=== PATIENT | male | born 1970 | race Caucasian/White ===

== ENCOUNTER 2017-09-19 01:11 | Inpatient (IN) | payer OTHER ==
[~2017-09-19] VITALS: Ht 180.3 cm; Wt 113.1 kg
[2017-09-19] MEDS ORDERED: CLARITHROMYCIN500 M1 PO (12:34)
--- NOTE | 2017-09-19 13:41 | Admission Core Measures ---
Acute Coronary Syndrome (CM) ACS Core Measures Acute Coronary Syndrome Diagnosis No Congestive Heart Failure (NEW) CHF Core Measures Congestive Heart Failure Diagnosis No Cerebrovascular Accident CVA Core Measures CVA/TIA Diagnosis No Venous Thromboembolism VTE Core Chandana (View Protocol) VTE Risk Factors Surgery No Mechanical VTE Prophylaxis d/t N/A MechProphylax Ordered No VTE Pharm Prophylaxis d/t NA PharmProphylax ordered Problem List As ranked by this Provider includes Assessment & Plan 1. Primary localized osteoarthritis of right hip HOME MEDS Home Med List Clarithromycin 500 MG TABLET 2 TAB PO DAILY sinus infection (Reported)
--- NOTE | 2017-09-19 13:45 | Patient Discharge Instructions ---
Discharge Instructions General Discharge Information You were seen/treated for: Primary osteoarthritis, right hip You had these procedures: Right total hip replacement on 09/19/17 Watch for these problems: Increasing pain despite the use of pain medication Increasing redness, warmth or swelling Drainage of any type from incision Inability to bear weight on operative leg Persistent nausea and vomiting Fever greater than 101.5 degrees No bath, but you may shower: Yes Other wound care: Please keep wound clean and dry. No ointments or lotions of any type on or near incision. Your dressing will be changed by your nurse on the second day after your surgery. Daily dry dressing changes are recommended each day thereafter. Do not soak your wound- no tub baths/swimming. You may shower 48hr after surgery. Special Instructions: Aspirin: You are taking this medication to help prevent blood clot formation. Please take with food to protect your stomach lining. Please take as directed. Constipation: Pain medication can cause constipation. It is recommended that you take Colace and Miralax each day. Discontinue this medication if you develop loose stool or diarrhea. If you wish to continue this medication, it is available over the counter. If you are unable to move your bowels or unable to pass gas and are developing bloating, nausea, or vomiting as a result, please contact your doctor. Diet Continue normal diet: Yes Activity Full Activity/No Limits: No Activity Self Limited: Yes Activity Limited to: Weight bear as tolerated Other activity limits: Use rolling walker as needed Acute Coronary Syndrome Inclusion Criteria At DC or during hospital stay patient has or had the following: ACS DIAGNOSIS No Discharge Core Measures Meds if any: Prescribed or Continued at Discharge Meds if any: NOT Prescribed or Continued at Discharge Congestive Heart Failure Inclusion Criteria At DC or during hospital stay patient has or had the following: CHF DIAGNOSIS No Discharge Core Measures Meds if any: Prescribed or Continued at Discharge Meds if any: NOT Prescribed or Continued at Discharge Cerebrovascular accident Inclusion Criteria At DC or during hospital stay patient has or had the following: CVA/TIA Diagnosis No Discharge Core Measures Meds if any: Prescribed or Continued at Discharge Meds if any: NOT Prescribed or Continued at Discharge Venous thromboembolism Inclusion Criteria VTE Diagnosis No VTE Type NONE VTE Confirmed by (Test) NONE Discharge Core Measures - Per Current guidelines, there needs to be overlap - treatment for the first 5 days of Warfarin therapy. - If discharged on Warfarin prior to 5 days of - overlap therapy, the patient will need to be - assessed for post discharge needs including - *Post discharge parental anticoagulation - *Warfarin and/or parental anticoagulation education - *Follow up date to check INR post discharge At least 5 days overlap therapy as Inpatient No Meds if any: Prescribed or Continued at Discharge Note: Overlap Therapy is Warfarin and Anticoagulant Meds if any: NOT Prescribed or Continued at Discharge
--- NOTE | 2017-09-19 13:46 | Surg Short-stay <48hrs Dis Sum ---
Visit Information Visit Dates Admission Date: 09/19/17 Discharge Date: 09/20/17 Surgical Short Stay DC Summary Admission Diagnosis: Primary osteoarthritis, right hip Final Diagnosis: LENNY s/p right total hip replacement Procedure(s): R THR Summary/Significant Findings: Patient was admitted to the hospital for an elective right total hip replacement. Procedure was tolerated well and patient was transferred to a general surgical floor. Diet was advanced and tolerated. Physical therapy performed evaluation and treatment. At time of hospital discharge, vital signs were stable, neurovascular status was intact, and pain was controlled with the use of oral pain medications. Condition at Discharge: Stable Discharge Disposition: home health services Discharge instructions provided to patient/family: Yes Post discharge follow-up plan: [address] Barbosa Copies to: Jazmin PRIDE,Hayden Dorsey
[2017-09-19] MEDS ORDERED: COLACE100 M1 PO (13:57)
[2017-09-19] MEDS ORDERED: DILAUDID2 M1 PO (13:57)
[2017-09-19] MEDS ORDERED: ASPIRIN EC81 M1 PO (13:57)
[2017-09-19] MEDS ORDERED: INDOMETHACIN25 M1 PO (13:57)
[2017-09-19] MEDS ORDERED: OMEPRAZOLE20 M2 PO (13:57)
[2017-09-19] MEDS ORDERED: MIRALAX17 G1 PO (13:57)
--- NOTE | 2017-09-19 16:17 | Operative Report ---
Operative/Inv Procedure Report Surgery Date: 09/19/17 Name of Procedure: Right total hip replacement Pre-Operative Diagnosis: Primary right hip DJD Post-Operative Diagnosis: Same Estimated Blood Loss: 300 Surgeon/Waste Machine Offbearer: Chelsey PRIDE,Alex Arnold Anesthesia: block Operative/Procedure Note Note: Description of Procedure: The patient was taken to the operating room and positively identified. After induction of spinal anesthesia and administration of appropriate pre-operative antibiotics, the patient was positioned supine on the operating room table and all bony prominences were well padded. After performing a surgical timeout, the right lower extremity was prepped and draped in the usual sterile fashion. A direct anterior approach was made to the right hip. The incision was carried sharply through superficial soft tissues to the level of the fascia. Meticulous hemostasis was maintained with Bovie electocautery. The fascia over the tensor fascia arabella muscle was opened sharply and the interval between the TFL and the sartorius was entered bluntly taking care to stay lateral to the lateral femoral cutaneous nerve. Retractors were placed around the femoral neck and the pericapsular fat was identified. The ascending branches of the lateral femoral circumflex vessels were identified and carefully coagulated. The pericapsular fat and anterior capsule were then resected. A napkin ring osteotomy was performed and the femoral head was removed without difficulty. Attention was then turned to the acetabulum. After appropriate placement of retractors, the acetabulum was exposed. Soft tissue was cleaned from the acetabular margin and notch. Overhanging osteophytes were removed and the teardrop was exposed. The acetabulum was then sequentially reamed to accept a 58 mm Don Tritanium hemispherical solid shell. This was impacted into place in the appropriate position and fitted with a 36 mm Trident X3 zero degree polyethylene insert. Attention was then turned to the femur. After performing the appropriate ligament releases, the proximal femur was exposed. It was then sequentially broached to accept a size 5 Don Accolade 2 stem. This was trialed for leg length and stability. The trial component was removed and the final component was impacted into place. The trunnion was carefully cleaned and fit with a 36 mm, +0 Biolox delta ceramic femoral head. The hip was reduced and put through a full range of motion and found to be stable. The articular space was then irrigated with sterile saline. The periarticular soft tissues were infilitrated with Marcaine. The fascial layer was closed with interrupted #1 vicryl suture and the skin was re-approximated with interrupted 2 -0 vicryl. The skin was closed with a running 3-0 V-Lock suture. Steri-strips and a sterile dressing were applied. The patient was awakened and taken to the recovery room in satisfactory condition.
--- NOTE | 2017-09-19 17:47 | RADIOLOGY REPORT ---
EXAMINATION: XR HIP, RIGHT CLINICAL INFORMATION: Right hip replacement. COMPARISON: None TECHNIQUE: Two views of the right hip. FINDINGS: A right hip prosthesis is in place. Alignment is adequate. There is expected subcutaneous gas present. IMPRESSION: Expected appearance of recent right hip replacement.
--- NOTE | 2017-09-19 18:25 | PN- Orthopedic ---
Subjective Subjective: Patient complains of moderate pain,was confused initially in PACU postop now alert and oriented is present, all questions answered Objective Vital Signs and I&Os VSS afebile Physical Exam: right hip - dressings CDI, without drainage thigh without edema sensory-motor intact, distal pulses intact chest-CTA heart - RRR abd - soft nontender Assessment/Plan Assessment/Plan 46 y/o male S/P right SHARON cont IVF until taking POs FWB with PT in am ASA and indocin Core Measures Venous Thromboembolism VTE Risk Factors Surgery No Mechanical VTE Prophylaxis d/t N/A MechProphylax Ordered No VTE Pharm Prophylaxis d/t NA PharmProphylax ordered
[2017-09-19 19:21] VITALS: BP 130/80
[2017-09-19 21:00] VITALS: BP 130/68
[2017-09-20] VITALS: BP 124/70
[2017-09-20 02:25] VITALS: BP 121/69
[2017-09-20 06:30] VITALS: BP 109/57
[2017-09-20 07:53] LABS: ABSOLUTE BASOPHIL COUNT 0 /CUMM (0.0-0.2); ABSOLUTE EOSINOPHIL COUNT 0 /CUMM (0.0-0.7); ABSOLUTE GRANULOCYTE CT 15.7 /CUMM (1.4-6.5); ABSOLUTE LYMPH COUNT 1.2 /CUMM (1.2-3.4); ABSOLUTE MONOCYTE COUNT 1.4 /CUMM (0.10-0.60); BASOPHIL % 0 % (0.0-2.0); EOSINOPHIL % 0 % (0-5); HEMATOCRIT 39.6 % (42-52); MEAN CORPUSCULAR HGB CONC 32.7 G/DL (33.0-37.0); MEAN CORPUSCULAR VOLUME 85.7 FL (80.0-94.0); MEAN PLATELET VOLUME 9.4 FL (7.4-10.4); PLATELET COUNT 208 /CUMM (130-400); RBC DISTRIBUTION WIDTH 13.1 % (11.5-14.5); RED BLOOD CELL CT 4.61 /CUMM (4.70-6.10)
[2017-09-20 07:57] LABS: GRANULOCYTE % 85.8 % (42.2-75.2)
[2017-09-20 08:58] LABS: WHITE BLOOD CELL COUNT 18.3 /CUMM (4.8-10.8)
--- NOTE | 2017-09-20 09:20 | PN- Orthopedic ---
Subjective Subjective: No complaints. Reports pain controlled with dilaudid. Cleared for home by PT this morning. No dizziness. No shortness of breath. No chest pains. Voiding well. Anticipates discharge to home today. Objective Vital Signs and I&Os Vital Signs Date Time Temp Pulse Resp B/P B/P Pulse O2 O2 Flow FiO2 Mean Ox Delivery Rate 09/20 0630 98.6 76 18 109/57 96 09/20 0225 98.0 71 18 121/69 95 / 0000 97.8 67 18 124/70 96 09/19 2100 98.2 68 17 130/68 95 Room Air 09/19 1921 98.4 71 18 130/80 94 Room Air Intake & Output 09/20 1600 09/20 0800 09/20 0000 09/19 1600 09/19 0800 09/19 0000 Intake Total 890 Output Total 450 Balance 890 -450 Intake, IV 650 Intake, Oral 240 Output, Urine 450 Patient 249 lb Weight Weight Bed scale Measurement Method Physical Exam: General - alert & oriented x 3. comfortable. no acute distress. Lungs - clear bilaterally. no w/r/r. Cardiac - s1s2. reg. Abdomen - soft. nontender. Extremities - warm bilaterally. no c/c/e. right hip dressing c/d/i. no hematoma. calves soft and nontender b/l. nvi. Current Medications: Current Medications Sig/Torres Start time Last Medication Dose Route Stop Time Status Admin Acetaminophen 0 .STK-MED ONE 09/19 1315 DC PO Aspirin Buffered 81 MG BID 09/19 2099 09/20 PO 0829 Cefazolin Sodium 2 GM Q8H 09/19 2100 DC 09/20 N/A 1 UNIT IV 09/20 0529 0533 Cefazolin Sodium 2,000 MG ONCE 09/19 0000 DC IV 09/19 2359 Dextrose/Sodium 1,000 ML .[id number] 09/19 193 AC 09/20 Chloride IV 0830 Docusate Sodium 100 MG BID 09/19 2100 AC 09/20 PO 0829 Haloperidol 5 MG .STK-MED ONE 09/19 1631 DC IM 09/19 1632 Hydromorphone HCl 2 MG Q4P PRN 09/19 1930 AC 09/20 PO 0047 Hydromorphone HCl 4 MG Q4P PRN 09/19 1930 AC 09/20 PO 0538 Hydromorphone HCl 2 MG .STK-MED ONE 09/19 1845 DC IM 09/19 1846 Hydromorphone HCl 2 MG .STK-MED ONE 09/19 1757 DC IM 09/19 1758 Hydromorphone HCl 2 MG .STK-MED ONE 09/19 1728 DC IM 09/19 1729 Hydromorphone HCl 2 MG .STK-MED ONE 09/19 1713 DC IM 09/19 1714 Hydromorphone HCl 2 MG .STK-MED ONE 09/19 1653 DC IM 09/19 1654 Hydromorphone HCl 2 MG .STK-MED ONE 09/19 1646 DC IM 09/19 1647 Indomethacin Sodium 25 MG TID 09/19 1400 AC 09/20 PO 0829 Ketorolac 30 MG .STK-MED ONE 09/19 1816 DC Tromethamine IM 09/19 1817 Midazolam HCl 4 MG .STK-MED ONE 09/19 1333 DC IM 09/19 1334 Morphine Sulfate 2 MG Q2P PRN 09/19 1930 AC IV Omeprazole 20 MG DAILY AC 09/20 0700 AC PO Ondansetron HCl 4 MG Q6P PRN 09/19 1930 AC IV Oxycodone HCl 0 .STK-MED ONE 09/19 1315 DC PO Oxycodone HCl 10 MG ONCE 09/19 0000 DC PO 09/19 2359 Polyethylene Glycol 17 GM DAILY 09/20 0900 AC 09/20 PO 0830 Tranexamic Acid 2,000 MG .STK-MED ONE 09/19 1333 DC IV 09/19 1334 Results Last 48 Hours of Labs: Laboratory Tests 09/20 0600 Chemistry Sodium (137 - 145 mmol/L) 141 Potassium (3.5 - 5.1 mmol/L) 4.5 Chloride (98 - 107 mmol/L) 104 Carbon Dioxide (22 - 30 mmol/L) 26 Anion Gap (5 - 16) 10 BUN (9 - 20 mg/dL) 18 Creatinine (0.7 - 1.2 mg/dL) 1.0 Estimated GFR (>60 ml/min) > 60 BUN/Creatinine Ratio (7 - 25 %) 18.0 Hematology CBC w Diff NO MAN DIFF REQ WBC (4.8 - 10.8 /CUMM) 18.3 H RBC (4.70 - 6.10 /CUMM) 4.61 L Hgb (14.0 - 18.0 G/DL) 12.9 L Hct (42 - 52 %) 39.6 L MCV (80.0 - 94.0 FL) 85.7 MCH (27.0 - 31.0 PG) 28.0 MCHC (33.0 - 37.0 G/DL) 32.7 L RDW (11.5 - 14.5 %) 13.1 Plt Count (130 - 400 /CUMM) 208 MPV (7.4 - 10.4 FL) 9.4 Gran % (42.2 - 75.2 %) 85.8 H Lymphocytes % (20.5 - 51.1 %) 6.5 L Monocytes % (1.7 - 9.3 %) 7.7 Eosinophils % (0 - 5 %) 0 Basophils % (0.0 - 2.0 %) 0 Absolute Granulocytes (1.4 - 6.5 /CUMM) 15.7 H Absolute Lymphocytes (1.2 - 3.4 /CUMM) 1.2 Absolute Monocytes (0.10 - 0.60 /CUMM) 1.4 H Absolute Eosinophils (0.0 - 0.7 /CUMM) 0 Absolute Basophils (0.0 - 0.2 /CUMM) 0 Assessment/Plan Assessment/Plan This 46 year old male is POD#1 s/p right total hip replacement tolerating diet pain controlled cleared by PT for home asa / indocin for dvt ppx f/u labs case maker to assist with hhs d/c home today will d/w Core Measures Venous Thromboembolism VTE Risk Factors Surgery No Mechanical VTE Prophylaxis d/t N/A MechProphylax Ordered No VTE Pharm Prophylaxis d/t NA PharmProphylax ordered
== END 2017-09-20 10:32 | disposition home health service (06) | DRG 470 ==
LOC: SDA 01:11 → ENRESERV 17:05 → CANRESERV 17:05 → EDBEDREQ 17:06 → ENRESERV 17:41 → ENTRNSPT 19:04 → EDTRNSPTSTS 19:12 → EDTRNSPT 19:12 → 2NB 19:16 → CMPTRNSPT 19:30 → ENTRNSPT 09-20 10:16 → EDTRNSPT 09-20 10:24 → EDTRNSPTSTS 09-20 10:24 → 2NB 09-20 10:32 → CMPTRNSPT 09-20 10:59
PROVIDERS: Physician Assistant Surgical
PROC: 0SR904A Replacement of Right Hip Joint with Ceramic on Polyethylene Synthetic Substitute, Uncemented, Open Approach (ICD-10-PCS; principal; 2017-09-19)
DX: M16.11 Unilateral primary osteoarthritis, right hip (principal); N39.0 Urinary tract infection, site not specified; K57.92 Diverticulitis of intestine, part unspecified, without perforation or abscess without bleeding; Z88.6 Allergy status to analgesic agent; Z88.0 Allergy status to penicillin
CPT/HCPCS: 2NBP; 36415; 73502-RT; 82436; 97116-GO; 97161-GP; 97530-GO; J0690; J0735; J1630; J1885; J7042